=== PATIENT | female | born 1995 | race Hispanic/Latino ===

== ENCOUNTER 2023-04-16 07:45 | Emergency (ER) | payer SELFPAY ==
[2023-04-16] MEDS ORDERED: Bacitracin 1 PK ONE (09:14)
== END 2023-04-16 09:35 | disposition home or self-care (01) ==
LOC: NAV ERS 07:45
DX: S00.83XA Contusion of other part of head, initial encounter (principal); S00.81XA Abrasion of other part of head, initial encounter; W01.110A Fall on same level from slipping, tripping and stumbling with subsequent striking against sharp glass, initial encounter
CPT/HCPCS: 99283